=== PATIENT | female | born 1960 ===

== ENCOUNTER 2020-12-02 18:40 | Emergency (ER) | payer OTHER, SELFPAY ==
--- NOTE | 2020-12-02 18:51 | PC.NURSE ---
CF: HOME AMBULATORY. LLQ ABD PAIN HX KIDNEY INFECTION. HAD IV ANTIBITOICS. SENT HOME- FEW WEEKS AGO. PAIN IS BACK. VS: 210/140-140, 20, 97%.
[2020-12-02 18:56] VITALS: BP 235/109; PULSE 125; RESP 18; TEMP 36.8; O2SAT 97; BMI 35.2
--- NOTE | 2020-12-02 18:58 | ED.ABDPAIN ---
HPI - Abdominal Pain General Chief Complaint: Abdominal Pain Stated Complaint: LOWER LT QUADRANT PAIN Time Seen by Provider: 12/02/20 18:58 Source: patient Mode of arrival: ambulatory Limitations: no limitations History of Present Illness HPI narrative: Patient has history of hypertension and recurrent UTI since yesterday complaining of lower abdominal pain mostly on the left side got worse today radiating to the lower back also noticed a strong odor in the urine denies any dysuria or hematuria no diarrhea also noticed nausea all day and vomiting unable to hold anything down. Also patient had chills but no fever patient denies any cough no abdominal distension no chest pain no history of kidney stone no history of diverticulitis. Also patient supposed to be on clonidine 0.2 mg 3 times a day for hypertension which she been taking for last 1 year does not have her medication for last 2 weeks as unable to get a refill from the PCP patient denies any headache no chest pain MD elicited complaint: abdominal pain Pertinent past history: past UTI Onset (ago): day(s) (2) Pain Consistency: constant Location: LLQ Severity: moderate Quality: cramping Radiation: none Migration to: no migration Exacerbating factors: nothing Relieving factors: nothing Associated symptoms: nausea and vomiting Related Data Previous Rx's Medication Instructions Recorded clonidine HCl 0.2 mg PO TID #90 tab 12/02/20 hydroxyzine HCl 50 mg PO BEDTIME PRN #30 tab 12/02/20 Allergies Allergy/AdvReac Type Severity Reaction Status Date / Time No Known Allergies Allergy Unverified 08/07/20 19:53 [No Known Allergies*] Review of Systems Review of Systems Constitutional : No Weight loss, No Fever, No Chills ENT/Mouth : No sore throat, No Rhinorrhea Eyes: No Eye Pain, No Swelling Cardiovascular : No Chest Pain, no palpitations Respiratory : No Cough, No Sputum, no shortness of breath Gastrointestinal :++Nausea, ++ Vomiting, No Diarrhea, ++ abdominal Pain, no black stools Genitourinary : No Dysuria, No Urinary Frequency Musculoskeletal : No joint pain, No Myalgias, No Joint Swelling Skin : No Skin Lesions, No rash Neuro : No Weakness, No Numbness, No Dizziness, No Headache Psych : No Anxiety/Panic, No Depression Heme/Lymph: No Bruising, No Lymphadenopathy Endocrine : No Polyuria, No Polydipsia All other systems reviewed and are negative Physical Exam Vital Signs: Vital Signs: Last Vital Signs Temp 98.6 F 12/02/20 21:49 Pulse 98 12/02/20 23:04 Resp 14 12/02/20 21:49 BP 160/69 H 12/02/20 23:04 Pulse Ox 95 12/02/20 21:49 Body Mass Index 35.2 Appearance: Alert. Oriented X3. In mild distress. Eyes: Pupils equal, round and reactive to light. ENT: Pharynx normal. Neck: Normal inspection. Neck supple. CVS: Normal heart rate and rhythm. Pulses normal. Respiratory: No respiratory distress. Breath sounds normal. Abdomen: Soft deep tenderness left lower quadrant without any guarding or rebound tenderness Bowel sounds are present, no mass palpable, no CVA tenderness Skin: Skin warm and dry. Normal skin color. Normal skin turgor. Extremities: No lower extremity edema. Neuro: Oriented X 3. No motor deficit. No sensory deficit. MDM - Abdominal Pain MDM Narrative Medical decision making narrative: Patient with lower abdominal pain CT scan showed no acute pathology workup is negative also patient had hypertension secondary to noncompliant on medication which improved after giving her clonidine 0.3 mg. Patient feeling much better now we will discharge her home on clonidine for blood pressure control advised to follow-up with PCP Differential Diagnosis Differential diagnosis: Likely abdominal pain, diverticulitis and gastritis Lab Data Attestation: I reviewed the patient's lab results. Result diagrams: 12/02/20 19:17 12/02/20 19:16 Labs: Lab Results 12/02/20 12/02/20 12/02/20 Range/Units 19:15 19:16 19:16 WBC (4.8-10.8) X10*3/uL RBC (4.20-5.50) X10*6/uL Hgb (12.0-16.0) g/dl Hct (37-47) % MCV (80-98) fL MCH (27.0-33.0) pg MCHC (31.0-35.0) g/dl RDW (11.0-16.0) % Plt Count (160-400) X10*3/uL MPV (9.4-12.3) fL Immature Gran % (Auto) (0.0-0.4) % Neut % (Auto) (45-73) % Lymph % (Auto) (20-40) % Moca % (Auto) (2-11) % Eos % (Auto) (0-4) % Baso % (Auto) (0-2) % Lymph # (Auto) (1.2-4.9) X10*3/uL Moca # (Auto) (0.1-1.2) X10*3/uL Eos # (Auto) (0.0-0.4) X10*3/uL Baso # (Auto) (0.0-0.2) X10*3/uL Abs Immat Gran (auto) (0.00-0.03) X10*3/uL Absolute Neuts (auto) (2.0-8.3) X10*3/uL Absolute Nucleated RBC (0.0-0.012) X10*3/uL Nucleated RBC % (auto) (0.0-0.2) /100WBC Sodium 142 (135-145) mmol/L Potassium 3.2 L (3.3-5.1) mmol/l Chloride 101 (96-108) mmol/L Carbon Dioxide 26 (22-29) mmol/L Anion Gap 18 (12-20) BUN 14 (9-16) mg/dL Creatinine 1.06 (0.5-1.4) mg/dL Estim Creat Clear Calc 68.7 Estimated GFR 53 Random Glucose 143 H (60-115) mg/dL Lactic Acid 1.6 (0.5-2.0) mmol/L Calcium 10.0 (8.4-10.2) mg/dL Total Bilirubin 0.6 (0.0-1.0) mg/dL Direct Bilirubin 0.3 (0.0-0.5) mg/dL AST 16 (5-31) U/L ALT 23 (0-31) U/L Alkaline Phosphatase 119 H (39-117) U/L Total Protein 7.4 (6.5-8.0) g/dL Albumin 4.9 (3.5-5.0) g/dL Lipase (8-78) U/L Urine Color Urine Appearance Urine pH (5.0-8.0) Ur Specific [place] (1.005-1.025) Urine Protein (NEG-TRACE) MG/DL Urine Glucose (UA) (NEG) MG/DL Urine Ketones (NEG) MG/DL Urine Blood (NEG) Urine Nitrite (NEG) Ur Leukocyte Esterase (NEG) Urine RBC (0) /HPF Urine WBC (0-4) /HPF Ur Squamous Epith Cells /LPF Urine Bacteria /LPF Urine Mucus /LPF COVID-19 ([place]) Negative (Negative) COVID-19 Clin Com See Note 12/02/20 12/02/20 12/02/20 Range/Units 19:16 19:17 21:48 WBC 15.6 H (4.8-10.8) X10*3/uL RBC 5.01 (4.20-5.50) X10*6/uL Hgb 14.2 (12.0-16.0) g/dl Hct 42.0 (37-47) % MCV 83.8 (80-98) fL MCH 28.3 (27.0-33.0) pg MCHC 33.8 (31.0-35.0) g/dl RDW 14.3 (11.0-16.0) % Plt Count 426 H (160-400) X10*3/uL MPV 10.3 (9.4-12.3) fL Immature Gran % (Auto) 0.4 (0.0-0.4) % Neut % (Auto) 89.7 H (45-73) % Lymph % (Auto) 6.9 L (20-40) % Moca % (Auto) 2.7 (2-11) % Eos % (Auto) 0.0 (0-4) % Baso % (Auto) 0.3 (0-2) % Lymph # (Auto) 1.1 L (1.2-4.9) X10*3/uL Moca # (Auto) 0.4 (0.1-1.2) X10*3/uL Eos # (Auto) 0.0 (0.0-0.4) X10*3/uL Baso # (Auto) 0.0 (0.0-0.2) X10*3/uL Abs Immat Gran (auto) 0.06 H (0.00-0.03) X10*3/uL Absolute Neuts (auto) 14.0 H (2.0-8.3) X10*3/uL Absolute Nucleated RBC 0.000 (0.0-0.012) X10*3/uL Nucleated RBC % (auto) 0.0 (0.0-0.2) /100WBC Sodium (135-145) mmol/L Potassium (3.3-5.1) mmol/l Chloride (96-108) mmol/L Carbon Dioxide (22-29) mmol/L Anion Gap (12-20) BUN (9-16) mg/dL Creatinine (0.5-1.4) mg/dL Estim Creat Clear Calc Estimated GFR Random Glucose (60-115) mg/dL Lactic Acid (0.5-2.0) mmol/L Calcium (8.4-10.2) mg/dL Total Bilirubin (0.0-1.0) mg/dL Direct Bilirubin (0.0-0.5) mg/dL AST (5-31) U/L ALT (0-31) U/L Alkaline Phosphatase (39-117) U/L Total Protein (6.5-8.0) g/dL Albumin (3.5-5.0) g/dL Lipase 23 (8-78) U/L Urine Color YELLOW Urine Appearance CLEAR Urine pH 8.0 (5.0-8.0) Ur Specific [place] 1.020 (1.005-1.025) Urine Protein 1+ H (NEG-TRACE) MG/DL Urine Glucose (UA) NEG (NEG) MG/DL Urine Ketones 15 (NEG) MG/DL Urine Blood NEG (NEG) Urine Nitrite NEG (NEG) Ur Leukocyte Esterase NEG (NEG) Urine RBC 0-2 (0) /HPF Urine WBC 0-2 (0-4) /HPF Ur Squamous Epith Cells TRACE /LPF Urine Bacteria TRACE /LPF Urine Mucus TRACE /LPF COVID-19 ([place]) (Negative) COVID-19 Clin Com Discharge Plan Discharge Clinical Impression: Abdominal pain, Hypertension Patient Disposition: Home, Self-Care Instructions: Chronic Hypertension (ED), Abdominal Pain (ED) Additional Instructions: Drink plenty of fluids. Take medication for blood pressure and anxiety as prescribed Prescriptions: New clonidine HCl 0.2 mg tablet 0.2 mg PO TID Qty: 90 RF: 0 hydroxyzine HCl 50 mg tablet 50 mg PO BEDTIME PRN (Reason: sleep) Qty: 30 RF: 0 Interventions: ED Discharge Assessment Last Done: 12/02/20 23:55 Discharge Date/Time: 12/02/20 23:56 [facility] Past Medical History Medical History Aborted ectopic Anxiety Depressed Ectopic of left ovary HTN (hypertension) Migraine Social History Social History Advance Directives: No
--- NOTE | 2020-12-02 19:03 | ECG_ITS ---
Test Reason : ABD PAIN Blood Pressure : / mmHG Vent. Rate : 118 BPM Atrial Rate : 119 BPM P-R Int : 124 ms QRS Dur : 076 ms QT Int : 372 ms P-R-T Axes : 072 063 067 degrees QTc Int : 521 ms Sinus tachycardia Nonspecific ST abnormality Prolonged QT Abnormal ECG When compared with ECG of 31-JUL-2020 19:26, Nonspecific T wave abnormality no longer evident in Anterior leads Referred By: Carmelo Prado Electronically Signed By:JUN MORA MD
--- NOTE | 2020-12-02 19:08 | CT_ITS ---
EXAMINATION: CT ABDOMEN AND PELVIS WITHOUT CONTRAST CLINICAL INFORMATION: Left lower quadrant pain question diverticulitis COMPARISON: CT abdomen and pelvis 07/31/2020 TECHNIQUE: Multidetector volumetric imaging was performed from the superior aspect of the liver through the pubic symphysis. Sagittal and coronal reformatted images were obtained on the technologist's workstation. This CT examination was performed using dose optimization techniques as appropriate, variously including the following: *Automated exposure control *Adjustment of mA and/or kV according to patient size (this includes techniques or standardized protocols for targeted exams where dose is matched to indication/reason for exam; i.e. extremities or head) *Use of iterative reconstruction technique DLP: 701 mGy-cm FINDINGS: LUNG BASES: The visualized lung bases are unremarkable. There small hiatal hernia. LIVER, GALLBLADDER, AND BILIARY TREE: The liver is normal in size, shape, and attenuation. 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 No intrahepatic ductal dilatation seen. The gallbladder is unremarkable with no evidence of radiopaque gallstones, gallbladder wall thickening, or obvious pericholecystic inflammatory changes. PANCREAS: Unremarkable. SPLEEN: Unremarkable. ADRENAL GLANDS: Unremarkable. KIDNEYS AND URETERS: The kidneys are normal in size, shape, and attenuation. No hydronephrosis, hydroureter, or calculi seen. No perinephric stranding. BLADDER: Unremarkable. GASTROINTESTINAL TRACT: There are scattered diverticuli in sigmoid:. Rest of the the stomach is nondistended. Colon appears unremarkable. The small bowel loops are normal caliber. ABDOMINAL WALL: No significant hernia is appreciated. LYMPH NODES: Normal. VASCULAR: Unremarkable. PELVIC VISCERA: There is 2.5 cm right ovarian cyst. There is no free fluid. The uterus is anteverted and appears unremarkable. OSSEOUS STRUCTURES: There are degenerative disc changes with vacuum disc phenomena L5-S1 disc level with mild posterior spondylosis. CT/CT abdomen pelvis wo con IMPRESSION: No acute intra-abdominal process seen. Minimal scattered sigmoid diverticuli but no evidence of diverticulitis or obstruction.
[2020-12-02 19:26] LABS: MANUAL DIFF FLAG NO
[2020-12-02 19:31] LABS: Basophils Percent Auto 0.3 % (0-2); Hemoglobin 14.2 g/dl (12.0-16.0); Imm Gran Abs Auto 0.06 X10*3/uL (0.00-0.03); Imm Gran Pct Auto 0.4 % (0.0-0.4); Lymphocytes Absolute Auto 1.1 X10*3/uL (1.2-4.9); Lymphocytes Percent Auto 6.9 % (20-40); Mean Corpuscular HGB Conc 33.8 g/dl (31.0-35.0); Mean Corpuscular Hemoglobin 28.3 pg (27.0-33.0); Mean Corpuscular Volume 83.8 fL (80-98); Mean Platelet Volume 10.3 fL (9.4-12.3); Monocytes Absolute Auto 0.4 X10*3/uL (0.1-1.2); Monocytes Percent Auto 2.7 % (2-11); Neutrophils Percent Auto 89.7 % (45-73); Platelet Count 426 X10*3/uL (160-400); Red Blood Count 5.01 X10*6/uL (4.20-5.50); Red Cell Distribution Width 14.3 % (11.0-16.0); White Blood Count 15.6 X10*3/uL (4.8-10.8)
[2020-12-02 19:38] VITALS: BP 201/82; PULSE 121; RESP 21; TEMP 36.9; O2SAT 99
--- NOTE | 2020-12-02 19:39 | PC.NURSE ---
OCTAVIANO GORDON IS AWARE OF PATIENT HIGH BLOOD PRESSURE AND HEART RATE .
[2020-12-02] MEDS: 0.9 % Sodium Chloride 1,000 ML 999 ML IVCONT (19:46)
[2020-12-02] MEDS: ondansetron HCL 4 MG/2 ML VIAL IVPUSH (19:46)
[2020-12-02] MEDS: Morphine Sulfate 4 MG/ML CARTRIDGE IVPUSH (19:47)
[2020-12-02 19:48] VITALS: BP 201/82; PULSE 117
[2020-12-02 19:48] LABS: Lactic Acid 1.6 mmol/L (0.5-2.0)
[2020-12-02] MEDS: cloNIDine HCL 0.1 MG TABLET 0.3 MG PO (19:48)
[2020-12-02 19:49] LABS: Lipase 23 U/L (8-78)
[2020-12-02 19:51] LABS: Alanine Aminotransferase 23 U/L (0-31); Albumin Level 4.9 g/dL (3.5-5.0); Alkaline Phosphatase 119 U/L (39-117); Anion Gap 18 (12-20); Aspartate Amino Transferase 16 U/L (5-31); Bilirubin Direct 0.3 mg/dL (0.0-0.5); Bilirubin Total 0.6 mg/dL (0.0-1.0); Blood Urea Nitrogen 14 mg/dL (9-16); Carbon Dioxide 26 mmol/L (22-29); Chloride 101 mmol/L (96-108); Creatinine Clr Calc Pharmacy 68.7; Estimated Glomerular Filt Rate 53; Glucose Random 143 mg/dL (60-115); Potassium 3.2 mmol/l (3.3-5.1); Sodium 142 mmol/L (135-145); Total Protein 7.4 g/dL (6.5-8.0)
[2020-12-02 19:56] LABS: COVID-19 Test Negative (Negative)
[2020-12-02 21:49] VITALS: BP 181/96; PULSE 117; RESP 14; TEMP 37; O2SAT 95
--- NOTE | 2020-12-02 21:50 | PC.NURSE ---
emerson traylor aware of patient high blood pressure and heart rate
[2020-12-02 22:00] VITALS: BP 160/69; PULSE 98
[2020-12-02 22:04] LABS: Glucose Urine UA NEG (NEG); Leukocyte Esterase Urine NEG (NEG); Nitrite Urine NEG (NEG); Urine Blood NEG (NEG); Urine Ketones 15 MG/DL (NEG); Urine Protein 1+ MG/DL (NEG-TRACE)
[2020-12-02 22:07] LABS: Appearance Urine CLEAR; Color Urine YELLOW
[2020-12-02 22:17] LABS: Bacteria Urine TRACE /LPF; Mucus Urine TRACE /LPF; RBC Urine 0-2 /HPF (0); Squamous Epithelial Cell Urine TRACE /LPF; WBC Urine 0-2 /HPF (0-4)
[2020-12-02] MEDS: cefTRIAXone sodium 1 GM in 0.9 % Sodium Chloride 50 ML IV (22:21)
[2020-12-02 23:04] VITALS: BP 160/69; PULSE 98
== END 2020-12-02 23:56 | disposition home or self-care (01) ==
PROVIDERS: Emergency Provider Internal Medicine
DX: R10.32 Left lower quadrant pain (principal); I10 Essential (primary) hypertension; Z79.899 Other long term (current) drug therapy; Z20.828 Contact with and (suspected) exposure to other viral communicable diseases
CPT/HCPCS: 36415; 74176; 80048; 80076; 81001; 81003; 83605; 83690; 85025; 87040; 87635; 93005; 96361; 96365; 96366; 96375; 99283; 99284; J0696; J2270; J2405